=== PATIENT | female | born 1945 | race Caucasian/White ===

== ENCOUNTER 2019-07-17 08:35 | Day surgery (SDC) | payer MEDICARE ==
[~2019-07-17] VITALS: Ht 185.4 cm; Wt 104.5 kg
[~2019-07-17 08:35] MED LIST: AMLO10TA8 PO; BUPIVACAINE/EPI 0.5% 1:200K ONE; CALC1CAP8 PO; GLUC-128 PO; HYDR25TA6 PO; ISOSULFAN BLUE 10 MG/ML, 5ML IV ONE; LOSA100T14 PO; MELA1TAB15 PO; MELO7.5T31 PO; METF500T17 PO; NAPR220C2 PO; OMEG-170 PO; OMEP-110 PO
[2019-07-17 09:36] VITALS: BP 169/93
[2019-07-17] MEDS ORDERED: LACTATED RINGERS 1,000 ML IV SCH ×2 (09:40→20:00)
[2019-07-17] MEDS ORDERED: GABAPENTIN 300 MG CAPSULE PO ONE (10:00)
[2019-07-17] MEDS ORDERED: ACETAMINOPHEN 500 MG TABLET PO ONE (10:00)
[2019-07-17] MEDS ORDERED: SCOPOLAMINE PATCH, 1.5MG PATCH.TD72 TD ONE (10:00)
[2019-07-17] MEDS ORDERED: ONDANSETRON ODT 8 MG PO ONE (10:00)
[2019-07-17] MEDS ORDERED: FENTANYL PF 250 MCG/5ML ONE (10:53)
[2019-07-17] MEDS ORDERED: OXYcodone 5 MG/5 ML ORAL.SOL UDC PO PRN (11:00)
[2019-07-17] MEDS ORDERED: MEPERIDINE/PF 25MG/ML,1ML IVPush PRN (11:00)
[2019-07-17] MEDS ORDERED: HYDROmorphone 2 MG/ML, 1ML IVPush PRN (11:00)
[2019-07-17] MEDS ORDERED: HALOPERIDOL 5 MG/ML IV PRN (11:00)
[2019-07-17] MEDS ORDERED: hydrALAzine 20 MG/ML, 1ML IV PRN (11:00)
[2019-07-17] MEDS ORDERED: LABETALOL 5MG/ML, 20ML IV PRN (11:00)
[2019-07-17] MEDS ORDERED: PROMETHAZINE 25 MG/ML, 1ML IV PRN (11:00)
[2019-07-17] MEDS ORDERED: FENTANYL PF 100 MCG/2ML ONE ×2 (13:23→14:16)
[2019-07-17] MEDS ORDERED: SUCCINYLCHOLINE 20 MG/ML, 10ML ONE (14:02)
[2019-07-17] MEDS ORDERED: CEFAZOLIN 1,000 MG ONE (14:02)
[2019-07-17] MEDS ORDERED: PROPOFOL 10 MG/ML, 20ML ONE (14:02)
[2019-07-17] MEDS ORDERED: NEOSTIGMINE 1 MG/ML, 10ML ONE (14:02)
[2019-07-17] MEDS ORDERED: DEXAMETHASONE 4 MG/ML, 1ML ONE (14:02)
[2019-07-17] MEDS ORDERED: GLYCOPYRROLATE 0.2MG/1ML, 5ML ONE (14:02)
[2019-07-17] MEDS ORDERED: ONDANSETRON 2MG/ML, 2ML ONE (14:02)
[2019-07-17] MEDS ORDERED: ROCURONIUM 10MG/ML,5ML ONE (14:02)
[2019-07-17] MEDS ORDERED: OXYcodone 5 MG/5 ML ORAL.SOL UDC ONE (14:16)
[2019-07-17] MEDS: FENTANYL PF 100 MCG/2ML IV PRN ×3 (14:20→14:58)
[2019-07-17] MEDS ORDERED: MEPERIDINE/PF 25MG/ML,1ML ONE (14:36)
[2019-07-17] MEDS ORDERED: ALBUTEROL SULFATE 2.5 MG/3 ML ONE (14:53)
[2019-07-17] MEDS ORDERED: ALBUTEROL SULFATE 2.5 MG/3 ML NPPB PRN (15:00)
[2019-07-17] MEDS ORDERED: MORPHINE SULFATE 4 MG/ML, 1ML IVPush PRN (20:00)
[2019-07-17] MEDS ORDERED: HYDROcodone/APAP 5/325 TABLET PO PRN (20:00)
== END 2019-07-17 21:40 | disposition home or self-care (01) ==
LOC: OUT 08:35 → EDSTATUS 11:30 → 4NE 18:18 → OUT 21:40
PROVIDERS: ATTEND Surgery
DX: C50.812 Malignant neoplasm of overlapping sites of left female breast (principal); N60.31 Fibrosclerosis of right breast; I10 Essential (primary) hypertension; K21.9 Gastro-esophageal reflux disease without esophagitis; F41.9 Anxiety disorder, unspecified; E66.9 Obesity, unspecified; Z68.30 Body mass index [BMI] 30.0-30.9, adult; Z72.89 Other problems related to lifestyle; Z79.84 Long term (current) use of oral hypoglycemic drugs; Z79.899 Other long term (current) drug therapy; Z87.891 Personal history of nicotine dependence; Z88.2 Allergy status to sulfonamides; Z85.3 Personal history of malignant neoplasm of breast; Z90.49 Acquired absence of other specified parts of digestive tract; Z98.890 Other specified postprocedural states; Z80.3 Family history of malignant neoplasm of breast
CPT/HCPCS: 19307; 38792; 82962; 88305; 88307; 88333; 94640; A9541; C1729; J0690; J1100; J2175; J2405; J2704; J2710; J3010; J7613; Q0162; G0378; J0330